=== PATIENT | male | born 1985 | race Caucasian/White ===

== ENCOUNTER → 2017-05-28 | Outpatient (CLI) | payer BC | LOC: RAD 15:18 | DX: R50.9 Fever, unspecified (principal) ==

== ENCOUNTER → 2017-12-28 | Outpatient (CLI) | payer BC ==
[~2017-12-28] VITALS: Ht 180.3 cm; Wt 93.2 kg
[2017-12-28 11:42] VITALS: BP 123/80
[2017-12-28 12:34] VITALS: BP 115/70
== END ==
LOC: AMSURD 11:29
DX: E86.0 Dehydration (principal); R19.7 Diarrhea, unspecified; R11.10 Vomiting, unspecified
CPT/HCPCS: J7030

== ENCOUNTER 2019-12-29 10:59 | Emergency (ER) | payer BC ==
[2019-12-29] MEDS ORDERED: VALIUM 2MG T2 MG/TAB PO (13:44)
[2019-12-29] MEDS ORDERED: ZOFRAN4 M2 PO (13:44)
[2019-12-29 14:50] VITALS: BP 115/72
== END 2019-12-29 14:32 | disposition home or self-care (01) ==
LOC: ED 10:59
DX: R42 Dizziness and giddiness (principal); Z88.0 Allergy status to penicillin
CPT/HCPCS: J2405; J3360

== ENCOUNTER → 2020-01-14 | Outpatient (CLI) | payer BC ==
[2019-12-29 14:50] VITALS: BP 115/72
[~2020-01-14] MED LIST: VALIUM 2MG T2 MG/TAB PO; ZOFRAN4 M2 PO
[2020-01-14 09:34] LABS: HEMATOCRIT 45.2 % (42.0-52.0); HEMOGLOBIN 14.8 g/dL (13.5-18.0); MEAN PLATELET VOLUME 10.8 fl (7.4-10.4); RED BLOOD COUNT 5.18 M/mm3 (4.20-5.60); RED CELL DISTRIBUTION WIDTH 12.9 % (11.5-14.5); WHITE BLOOD COUNT 7.9 K/mm3 (4.8-10.8)
[2020-01-14 09:49] LABS: ALBUMIN 4.6 g/dL (3.5-5.0); POTASSIUM 4.1 mmol/L (3.5-5.1)
[2020-01-14 09:50] LABS: CALCIUM 9.3 mg/dL (8.3-10.5)
[2020-01-14 09:51] LABS: TOTAL PROTEIN 6.9 g/dL (6.4-8.3)
[2020-01-14 09:53] LABS: TOTAL BILIRUBIN 0.8 mg/dL (0.2-1.2)
== END ==
LOC: AMSURD 09:16 → LAB 09:16
PROVIDERS: Family Medicine
DX: Z13.6 Encounter for screening for cardiovascular disorders (principal); R09.89 Other specified symptoms and signs involving the circulatory and respiratory systems; R42 Dizziness and giddiness; R51 Headache

== ENCOUNTER 2020-02-27 14:57 | Emergency (ER) | payer BC ==
[~2020-02-27] VITALS: Ht 182.9 cm; Wt 100.0 kg
[2020-02-27 15:35] LABS: HEMATOCRIT 44.6 % (42.0-52.0); MEAN CELL VOLUME 87 fl (78-100); MEAN CORPUSCULAR HEMOGLOBIN 29 pg (27-31); MEAN CORPUSCULAR HGB CONC 34 g/dL (33-37); MEAN PLATELET VOLUME 10.8 fl (7.4-10.4); PLATELET COUNT 217 K/mm3 (130-400); RED BLOOD COUNT 5.15 M/mm3 (4.20-5.60); RED CELL DISTRIBUTION WIDTH 12.9 % (11.5-14.5); WHITE BLOOD COUNT 9.7 K/mm3 (4.8-10.8)
[2020-02-27 15:40] LABS: ALBUMIN 4.9 g/dL (3.5-5.0)
[2020-02-27 15:41] LABS: BAND 1 % (0-10); LYMPHOCYTE 6 % (20-51); MONOCYTE 11 % (3-10); NEUTROPHILS 80 % (42-75); SODIUM 138 mmol/L (136-145)
[2020-02-27 15:42] LABS: CALCIUM 9.6 mg/dL (8.3-10.5)
[2020-02-27 15:43] LABS: GLUCOSE 120 mg/dL (75-110); TOTAL PROTEIN 7.8 g/dL (6.4-8.3)
[2020-02-27 15:44] LABS: CARBON DIOXIDE 22 mmol/L (22-29)
[2020-02-27 15:45] LABS: TOTAL BILIRUBIN 1.2 mg/dL (0.2-1.2)
[2020-02-27 15:48] LABS: AST-SGOT 22 U/L (5-34)
[2020-02-27 15:50] LABS: ALT/SGPT 27 U/L (0-55)
[2020-02-27 15:54] LABS: D-DIMER 0.88 mg/L FEU (0.15-0.50)
[2020-02-27 15:56] LABS: TROPONIN-I < 0.03 ng/mL (<0.030)
[2020-02-27] MEDS ORDERED: MORGIDOX 1X100100 MG PO (17:25)
[2020-02-27 18:04] VITALS: BP 140/62
== END 2020-02-27 18:03 | disposition home or self-care (01) ==
LOC: ED 14:57
PROVIDERS: Nurse Practitioner
DX: J32.9 Chronic sinusitis, unspecified (principal); Z20.828 Contact with and (suspected) exposure to other viral communicable diseases; Z88.0 Allergy status to penicillin
CPT/HCPCS: J2405; J7030; Q9967

== ENCOUNTER → 2020-03-10 | Outpatient (CLI) | payer BC ==
[2020-02-27 18:04] VITALS: BP 140/62
[~2020-03-10] MED LIST changes: +MORGIDOX 1X100100 MG PO
== END ==
LOC: RAD 15:45
DX: Q25.79 Other congenital malformations of pulmonary artery (principal); I10 Essential (primary) hypertension

== ENCOUNTER → 2020-03-19 | Outpatient (CLI) | payer BC ==
[2020-02-27 18:04] VITALS: BP 140/62
== END ==
LOC: CARDLAB 07:53
DX: I10 Essential (primary) hypertension (principal); Q25.79 Other congenital malformations of pulmonary artery

== ENCOUNTER → 2020-07-28 | Outpatient (CLI) | payer BC | LOC: LAB 13:10 | DX: U07.1 COVID-19 (principal) ==

== ENCOUNTER → 2021-01-26 | Outpatient (CLI) | payer BC ==
[2021-01-26 15:08] LABS: ALBUMIN 4.6 g/dL (3.5-5.0); POTASSIUM 3.9 mmol/L (3.5-5.1)
[2021-01-26 15:09] LABS: CALCIUM 9.6 mg/dL (8.3-10.5)
[2021-01-26 15:10] LABS: TOTAL PROTEIN 7.5 g/dL (6.4-8.3)
[2021-01-26 15:12] LABS: TOTAL BILIRUBIN 0.9 mg/dL (0.2-1.2)
== END ==
LOC: LAB 14:50
PROVIDERS: Family Medicine
DX: I10 Essential (primary) hypertension (principal); R94.5 Abnormal results of liver function studies

== ENCOUNTER → 2021-01-27 | Outpatient (CLI) | payer BC ==
[2021-01-27 11:30] LABS: URINE WBC 0 /hpf (0-3)
[2021-01-27 14:12] LABS: URINE APPEARANCE CLEAR; URINE BILIRUBIN NEGATIVE (NEGATIVE); URINE BLOOD NEGATIVE (NEGATIVE); URINE COLOR YELLOW; URINE GLUCOSE NEGATIVE (NEGATIVE); URINE KETONE NEGATIVE (NEGATIVE); URINE LEUKOCYTE ESTERASE NEGATIVE (NEGATIVE); URINE NITRATE NEGATIVE (NEGATIVE); URINE PROTEIN(semi-quant) NEGATIVE (NEGATIVE); URINE UROBILINOGEN NORMAL (NORMAL)
[2021-01-27 14:13] LABS: URINE MUCUS PRESENT (NOT PRESENT)
== END ==
LOC: LAB 11:25
PROVIDERS: Family Medicine
DX: N18.1 Chronic kidney disease, stage 1 (principal)

== ENCOUNTER 2021-03-16 12:55 | Outpatient (RCR) | payer BC | END 2021-06-13 10:02 | disposition home or self-care (01) | LOC: PT 12:55 | DX: S73.012A Posterior subluxation of left hip, initial encounter (principal) ==

== ENCOUNTER → 2021-03-24 | Outpatient (CLI) | payer BC ==
[2021-03-24 15:59] LABS: POTASSIUM 4.1 mmol/L (3.5-5.1)
[2021-03-24 16:00] LABS: CALCIUM 9.9 mg/dL (8.3-10.5)
== END ==
LOC: LAB 15:09
PROVIDERS: Family Medicine
DX: I12.9 Hypertensive chronic kidney disease with stage 1 through stage 4 chronic kidney disease, or unspecified chronic kidney disease (principal); N18.1 Chronic kidney disease, stage 1

== ENCOUNTER → 2021-03-24 | Outpatient (CLI) | payer OTHER, BC | LOC: RAD 14:49 | DX: M25.511 Pain in right shoulder (principal) ==

== ENCOUNTER 2021-06-06 08:59 | Outpatient (RCR) | payer OTHER | END 2021-07-15 | disposition home or self-care (01) | LOC: PT 08:59 | DX: S43.431A Superior glenoid labrum lesion of right shoulder, initial encounter (principal) ==

== ENCOUNTER 2021-07-21 09:00 | Outpatient (RCR) | payer OTHER | END 2021-08-15 | LOC: PT | DX: S43.431A Superior glenoid labrum lesion of right shoulder, initial encounter (principal) ==

== ENCOUNTER 2021-08-16 09:00 | Outpatient (RCR) | payer OTHER | END 2021-09-12 | disposition home or self-care (01) | LOC: PT | DX: S43.431D Superior glenoid labrum lesion of right shoulder, subsequent encounter (principal); X58.XXXD Exposure to other specified factors, subsequent encounter ==

== ENCOUNTER 2021-09-13 08:58 | Outpatient (RCR) | payer OTHER | END 2021-10-13 11:43 | disposition still patient (30) | LOC: PT 08:58 | DX: S43.431A Superior glenoid labrum lesion of right shoulder, initial encounter (principal) ==